=== PATIENT | male | born 1980 | race Caucasian/White ===

== ENCOUNTER 2025-04-16 12:48 | Outpatient (REF) | payer BC, SELFPAY ==
--- OUTSIDE RECORDS SUMMARY | 2025-04-16 12:52 | XMS_ITS | Clinical Summary ---
Author Organization [facility] [address] [facility] Address [address] [place] [address] Phone Care Team Providers Care Academic Program Specialist Name Role Phone Karsten Cheney MD Primary Care Provider [phone] Surgical History Surgery Date Site/Laterality Comments KNEE SURGERY PROCEDURE: HISTORICAL KNEE SURGERY; COMMENT: right VASECTOMY PROCEDURE: SC VASECTOMY UNI/BI SPX W/POSTOP SEMEN EXAMS Medical History Medical History Date Comments Eczema 01/21/2013 DX:Eczema Family History Medical History Relation Name Comments Other: epilepsy Brother 1 dm Alcohol/Drug Father hyperlipidemia Diabetes Maternal Grandfather Stroke Maternal Grandmother age 70 Hypertension Mother hyperlipidemia Relation Name Status Comments Brother 1 Brother 2 Father Maternal Grandfather Maternal Grandmother Mother Social History Tobacco Use Types Packs/Day Years Used Date Smoking Tobacco: Former Cigarettes Q uit: 08/07/2015 Smokeless Tobacco: Never Alcohol Use Standard Drinks/Week Comments Yes 10 (1 standard drink = 0.6 oz pu re alcohol) Sex and Gender Information Value Date Recorded Sex Assigned at Not on file Legal Sex Male 3:26 AM EST Gender Identity Not on file Sexual Orientation Not on file Obstetrics History Plan of Treatment Health Maintenance Due Date Last Done Comments Hepatitis B Vaccines (1 of 3 - 19+ 3-dose series) 1998 DTaP,Tdap,and Td Vaccines (2 - Td or Tdap) 01/21/2023 01/21/2013 COVID-19 Vaccine ( - 2023-2 5 season) 2024 Cholesterol Screening (Lipid Panel) 09/19/2024 Colorectal Cancer Screening: Colonoscopy 09/19/2024 Depression Screening 09/19/2024 HIV Screening 09/19/2024 Hepatitis C Screening 09/19/2024 Social Influencers of Health Screening 09/19/2024 Influenza Vaccine (#1) 2025 HIB Vaccines Aged Out No longer eligi ble based on patient's age to complete this topic HPV Vaccines Aged Out No longer eligi ble based on patient's age to complete this topic Hepatitis A Vaccines Aged Out No long er eligible based on patient's age to complete this topic IPV Vaccines Aged Out No longer eligi ble based on patient's age to complete this topic MMR Vaccines Aged Out No longer eligi ble based on patient's age to complete this topic Meningococcal ACWY Vaccine Aged Out N o longer eligible based on patient's age to complete this topic Meningococcal B Vaccine Aged Out No l onger eligible based on patient's age to complete this topic Pneumococcal Vaccine: Pediat rics (0 to 5 Years) and At-Risk Patients (6 to 49 Years) Aged Out No longer eligi ble based on patient's age to complete this topic RSV Immunization Patients Un patricia 20 months Aged Out No longer eligible b ased on patient's age to complete this topic Varicella Vaccines Aged Out No longer eligible based on patient's age to complete this topic Insurance [facility] Care Teams Academic Program Specialist Relationship Specialty Start Date End Date Karsten Cheney MD [address] [place] [phone] PCP - General Internal Medicine 09/19/24
== END 2025-04-16 12:49 | disposition home or self-care (01) ==
LOC: HO.SH 12:48
PROVIDERS: Visit Provider Internal Medicine
DX: Z01.118 Encounter for examination of ears and hearing with other abnormal findings (principal); H90.3 Sensorineural hearing loss, bilateral
CPT/HCPCS: 92557; 92567